=== PATIENT | male | born 1980 | race Caucasian/White ===

== ENCOUNTER 2018-06-17 05:38 | Day surgery (SDC) | payer OTHER ==
[2018-06-17] VITALS (23 sets, daily range): BP systolic 103–145; BP diastolic 47–82; PULSE 52–82; RESP 15–19
[~2018-06-17] VITALS: Ht 182.9 cm; Wt 84.3 kg
[~2018-06-17 05:38] MED LIST: ALPR0.254; CARI350T; HYDR-762
[2018-06-17] MEDS ORDERED: ALPR1TAB2 PO (06:49)
[2018-06-17] MEDS ORDERED: ROPIVACAINE 0.5 % 30 ML VIAL ONE ×2 (06:53→07:23)
[2018-06-17] MEDS ORDERED: NEOMYC/POLYMYX/BACIT 30 GM OINT ONE (06:53)
[2018-06-17] MEDS ORDERED: SUGAMMADEX SODIUM 200 MG/2 ML VIAL IV ONE (07:00)
--- NOTE | 2018-06-17 07:14 | PREAC ---
Date/Time of Note Date/Time of Note DATE: 06/17/18 TIME: 07:11 Anesthesia Eval and Record Evaluation Time Pre-Procedure Interview DATE: 06/17/18 TIME: 07:11 Age 37 Sex male NPO: 8 hrs Preoperative diagnosis RIGHT ANKLE AND SUBTALAR OSTEOCHONDRAL DEFECT, ANKLE ANTERIOR IMPINGEMENT Planned procedure RIGHT ANKLE SCOPE, EXTENSIVE DEBRIDEMENT Past Medical History Past Medical History: Includes Psych: Anxiety Surgery & Anesthesia Issues No known issue Meds Anticoagulation: No Beta Little within 24 hr: No Reason Beta Little not given: Pt. not on B-Little Reported Medications Alprazolam* (Xanax*) 1 Mg Tab, 1 MG PO BID PRN for ANXIETY, TAB 06/17/18 Discontinued Reported Medications Alprazolam (Xanax) 0.25 Mg Tab 07/11/10 Carisoprodol* (Soma*) 350 Mg Tablet 07/11/10 Hydrocodone Bit-Acetaminophen* ([place]*) 1 Tab Tablet 07/11/10 Meds reviewed: Yes Allergies Coded Allergies: No Known Allergies (Verified Allergy, Mild, 06/17/18) Allergies Reviewed: Yes Labs/Studies Labs Reviewed: Reviewed by anesthesiologist test: N/A Pre-procedure Exam Last vitals Vital Signs Date Temp Pulse Resp B/P (MAP) Pulse Ox O2 O2 Flow FiO2 Time Delivery Rate 06/17/18 98.4 62 19 108/79 19 Room Air 06:06 (89) Airway: Adequate mouth opening, Adequate thyromental dist Mallampati: Mallampati II Teeth: Normal Lung: Normal Heart: Normal ASA Physical Status ASA physical status: 1 Emergency: None Planned Anesthetic General/MAC: MAC Planned Pain Management Parenteral pain med Pre-operative Attestations Prior to commencing anesthesia and surgery, the patient was re-evaluated, there was verification of: *The patient's identity *The results of appropriate recent lab work and preoperative vital signs *The above evaluation not changing prior to induction *Anesthetic plan, risk benefits, alternative and complications discussed with patient/family; questions answered; patient/family understands, accepts and wishes to proceed. Robson Gabriel M.D. Jun 17, 2018 07:14
[2018-06-17] MEDS ORDERED: GLYCOPYRROLATE 0.4 MG INJ ONE (07:19)
[2018-06-17] MEDS ORDERED: ROCURONIUM 50 MG INJ ONE ×3 (07:19→10:01)
[2018-06-17] MEDS ORDERED: NEOSTIGMINE 3 MG/3 ML SYRINGE ONE (07:19)
[2018-06-17] MEDS ORDERED: MIDAZOLAM 1 MG/ML 2 ML INJ ONE (07:19)
[2018-06-17] MEDS ORDERED: CEFAZOLIN 1 GM INJ ONE (07:19)
[2018-06-17] MEDS ORDERED: ONDANSETRON 4 MG INJ ONE (07:19)
[2018-06-17] MEDS ORDERED: PROPOFOL 20 ML ONE (07:19)
[2018-06-17] MEDS ORDERED: FENTAnyl 50 MCG/ML VIAL ONE ×3 (07:19→09:17)
[2018-06-17] MEDS ORDERED: DEXAMETHASONE 4 MG/ML 5 ML INJ ONE (07:20)
[2018-06-17] MEDS ORDERED: OXYCODONE/ACETAMINOPHEN (5/325) TAB PO PRN ×2 (07:30)
[2018-06-17] MEDS ORDERED: DIPHENHYDRAMINE 50 MG INJ IV PRN (07:30)
[2018-06-17] MEDS ORDERED: LABETALOL HCL 20MG INJ IV PRN (07:30)
[2018-06-17] MEDS ORDERED: ONDANSETRON 4 MG INJ IV PRN (07:30)
[2018-06-17] MEDS ORDERED: TRIMETHOBENZAMIDE 100 MG/ML VIAL IM PRN (07:30)
[2018-06-17] MEDS ORDERED: hydrALAzine 20 MG INJ IV PRN (07:30)
[2018-06-17] MEDS ORDERED: FENTAnyl 50 MCG/ML VIAL IV PRN ×3 (07:30)
[2018-06-17] MEDS ORDERED: MIDAZOLAM 1 MG/ML 2 ML INJ IV PRN (07:30)
[2018-06-17] MEDS ORDERED: MEPERIDINE 25 MG INJ IV PRN (07:30)
[2018-06-17] MEDS ORDERED: IPRATROPIUM (NEB) 0.5 MG/2.5 ML AMP HHN PRN (07:30)
[2018-06-17] MEDS ORDERED: HYDROmorphONE 1 MG/5 ML IV SYRINGE IV PRN ×3 (07:30)
[2018-06-17] MEDS ORDERED: EPHEDrine SULFATE 50 MG/5 ML SYG IV PRN (07:30)
[2018-06-17] MEDS ORDERED: ALBUTEROL 0.083% (NEB) 2.5 MG/3 ML AMP HHN PRN (07:30)
[2018-06-17] MEDS ORDERED: THROMBIN (BOVINE) 5,000 UNIT VIAL TP ONE (07:32)
[2018-06-17] MEDS ORDERED: HEPARIN 1000 UNITS/ML 10 ML INJ ONE (07:33)
[2018-06-17] MEDS ORDERED: SODIUM CL BACTERIOSTATIC 30 ML INJ ONE (07:33)
--- NOTE | 2018-06-17 08:04 | HPN ---
Date/Time of Note Date/Time of Note DATE: 06/17/18 TIME: 08:04 Interval H&P Admission Note Pt. seen H&P reviewed: No system changes MATILDE MEZA MD Jun 17, 2018 08:04
[2018-06-17] MEDS ORDERED: IOHEXOL 300MG/ML 30 ML BTL ONE (09:19)
[2018-06-17] MEDS ORDERED: CA CHLORIDE (GM) 10% 10 ML INJ ONE (09:19)
[2018-06-17] MEDS ORDERED: CA CHLORIDE 10% 10 ML SYRINGE ONE (09:22)
[2018-06-17] MEDS ORDERED: KETOROLAC 30 MG INJ IV SCH (10:00)
[2018-06-17] MEDS ORDERED: THROMBIN(HUM PLAS)/FIBRINOG/CA 5 ML VIAL TOP ONE (11:51)
[2018-06-17] MEDS ORDERED: DEXAMETHASONE 4 MG/ML 1 ML INJ ONE (12:34)
[2018-06-17] MEDS ORDERED: METOCLOPRAMIDE 10 MG INJ ONE (12:34)
--- NOTE | 2018-06-17 12:46 | PAC ---
Date/Time of Note Date/Time of Note DATE: 06/17/18 TIME: 12:46 Post-Anesthesia Notes Post-Anesthesia Note Last documented vital signs Vital Signs Date Temp Pulse Resp B/P (MAP) Pulse Ox O2 O2 Flow FiO2 Time Delivery Rate 06/17/18 98.4 62 19 108/79 19 Room Air 06:06 (89) Activity: WNL Respiratory function: WNL Cardiovascular function: WNL Mental status: Baseline Pain reasonably controlled: Yes Hydration appropriate: Yes Nausea/Vomiting absent: Yes Robson Gabriel M.D. Jun 17, 2018 12:46
[2018-06-17] MEDS ORDERED: METOCLOPRAMIDE 10 MG INJ IV ONE (13:00)
[2018-06-17] MEDS ORDERED: DEXAMETHASONE 4 MG/ML 1 ML INJ IV ONE (13:00)
[2018-06-17] MEDS ORDERED: OXYCODONE/ACETAMINOPHEN (5/325) TAB PO ONE (15:00)
--- NOTE | 2018-06-17 21:07 | OPR ---
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 Estimated Blood Loss: minimal Transfusion none Specimen none Grafts/Implants none Complications none Pt Condition Post Procedure: stable Disposition: PACU Indications Patient is a 37-year-old male with ongoing pain in his right ankle as well as a positive Silverskiold test showing evidence of dorsiflexion to -10 degrees with the knee in extension and is 0 degrees with the knee in flexion. Given these findings patient is indicated for gastrocnemius recession. Patient is also evid ence of a osteochondral defect of the talus and there will be to surgical operative notes for this patient surgery today please refer to the second operative note for operative findings of the arthroscopy. Risk Note: Patient was explained the risks and benefits of surgery and the patient's [place] language including not limited to infection, bleeding, injury to blood vessels, nerves, ligaments or tendons. Risks of anesthesia, deep vein thrombosis and need for reduce future surgery. Patient acknowledged these risk by signing the surgical consent form. Procedure Description Patient was met in the preoperative holding area and the operative extremity was marked and confirmed with patient and consent. Patient brought to the operative theater and placed supine on operative table given preoperative antibiotics and preoperative anesthesia. Patient was then prepped and draped in normal sterile fashion and a timeout was taken and all parties in the room agreed it was the correct patient and extremity and procedure. Attention was initially turned to the right lower extremity where the ankle was stabilized in the neutral position against the surgeon's body to put the gastrocnemius tendon under moderate tension. A 6 mm medial portal was then cre ated approximately 2 cm distal to the lowest part of the gastrocnemius muscle belly and slightly anterior to the palpable medial border of the gastrocnemius tendon. The deep crural fascia was then punctured with a hemostat and advanced into the plane just posterior to the tension gastrocnemius tendon. A clear cannula was inserted and a trocar was inserted into the soft tissue plane just posterior to the gastrocnemius tendon and deep to the crural fascia. A 6 mm lateral portal was made on the lateral side of the gastrocnemius. The inside of the cannula was then cleaned out and the cannula was adjusted so that the opening slot was facing directly anterior towards the gastrocnemius tendon. The sural nerve was also identified on lateral portion of the leg and protected throughout the case. The hook knife was inserted from the lateral portal maintaining moderate tension on the tendon and releasing the gastrocnemius fascia from midline to the most lateral border. The same procedure was then done from medial portal pulling medially. Once the gastrocnemius fascia was then released the underlying soleus muscle was then served the wound was then irrigated thoroughly. And the ankle was manipulated to approximately 15 degrees of dorsiflexion with the knee in extension. The wounds were then closed with a 4-0 Monocryl and Steri-Strips. Attention was then directed to the right iliac crest where a roxana incision was made over the iliac crest just proximal to the anterior superior iliac spine and using a Jamshidi needle approximately 90 cc of bone marrow aspirate was removed in the right iliac crest and sent off for centrifugation. Following this using a Jamshidi needle core reamer several cc of bone marrow allograft was then removed from the right iliac crest for future use for the osteochondral defect of the talus. Please refer to the second operative note for arthroscopic summary of the procedure. In the case all wounds were covered and dressing was taken down and wrapping was taken down and we converted to the next part of the procedure. At this time surgeons and staff re-prepped the patient please turn your attention to the next operative note for this part of the case. MATILDE MEZA MD Jun 17, 2018 21:07
--- NOTE | 2018-06-17 22:19 | OPR ---
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 with subchondral insufficiency Operation/Procedure Performed Right ankle arthroscopy with extensive debridement Right ankle arthroscopy with Debridement and microfracture of osteochondral defect of anteriorcentral talar dome Right ankle arthroscopy with application of autograft and allograft to osteochondral defect of lateral talar dome mixed with bone marrow aspirate concentrate Right ankle arthroscopic interosseous bio plasty to the talus with application of allograft mixed with bone marrow aspirate concentrate Right ankle application of platelet rich plasma to the ankle and subtalar joint 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 Tourniquet Time: 120 min at 250 mm Hg Estimated Blood Loss: minimal Transfusion none Specimen none Grafts/Implants Arthrex Biocartilage mixed with bone marrow aspirate concentrate Arthrex allysync pure mixed with bone marrow aspirate concentrate Arthrex Vinny platelet rich plasma spun at 2% hematocrit Eviseal fibrin glue Complications none Pt Condition Post Procedure: stable Disposition: PACU Indications Patient is a 29-year-old male ongoing pain over his ankle and talus with MRI and CT confirming osteochondral defect and chronic bone marrow edema to the talus as well as a cystic lesion in both the talus at the dome and at the subchondral area just proximal to the subtalar joint. Given his ongoing pain patient is indicated for surgery after lack of improvement with nonoperative management. Risk Note: Patient was explained the risks and benefits of surgery and the patient's [place] language including not limited to infection, bleeding, injury to blood vessels, nerves, ligaments or tendons. Risks of anesthesia, deep vein thrombosis and need for reduce future surgery. Patient acknowledged these risk by signing the surgical consent form. Procedure Description The patient had the correct operative site marked in the preoperative holding area and confirmed with both patient and patient's consent. The patient was brought back in the operative theater, placed supine on the operating table and given regional block anesthesia. The patient was then given 2 g of Ancef preoperatively. Patient was then given preoperative antibiotics. Please see prior operative note for procedure on the gastrocnemius recession and iliac crest autograft and bone marrow harvest Tourniquet placed on the operative extremity thigh nonsterilely. The thigh was secured onto the thigh hernandez, flexed and all areas were carefully padded with popliteal fossa spared to avoid any compression. The superficial peroneal nerve branch was marked out. The ankle were then prepped and draped in normal sterile fashion. A timeout was taken and all parties in the room agreed it was the correct patient, correct extremity and correct procedure. A soft tissue distraction strap was applied across the ankle and a soft tissue dissection was then placed across the ankle at approximately 30 pounds of force. Attention was then turned to the ankle joint and using a typical anterior medial, posterior lateral and anterolateral portal with care to avoid injury to the neurovascular structures. A 21 point ankle exam was completed revealing significant anterior lateral and medial synovitis with lateral and medial gutter synovitis and scar tissue formation. There was a hemorrhagic nodule seen in the lateral gutter as well as evidence of anterior tibial osteophyte overhang. The anterior distal tibial osteophyte was removed with a bur and a shaver. The significant amount of scar tissue was thoroughly debrided in the lateral and posterior gutter. The lateral and posterior gutter showed extensive scar tissue that was debrided as well as anterolateral synovitis scarring. A osteochondral lesion of the anterior central talar dome was identified and curetted and debrided. There was mild cystic formation found underneath the surface and the entire lesion measures approximately 3x2x1 mm in depth. Water was turned off and the field was dried. Under arthroscopic visualization the remainder of the cystic membranes were removed and then interosseous bio plasty was performed with a 3 mm Jamshidi that was then placed under fluoroscopic guidance from the lateral part of the talus and shown to be in the proper position and then allosync pure mixed with bone marrow aspirate concentrate was then placed into the talus with the events directed both superiorly and inferiorly to fill the cystic defect and bone marrow edema lesion. At the autograft was then placed at the osteochondral defect followed by biocartilage that had been mixed with bone marrow aspirate concentrate and autograft cartilage that was removed during the debridement part process and captured with the graft net. EviSeal fibrin glue was then placed over the top of the biocartilage. The joint was held in traction for approximately 7 minutes while the glue hardened. All wounds were closed with 4-0 nylon in vertical mattress fashion. The wound was then covered ankle and subtalar joint were then injected with platelet rich plasma spine at 2 % hematocrit Platelet poor plasma was placed on the wound dressing. A compression dressing was applied with Xeroform, 4 x 4's and ABDs and the patient was placed into a short leg splint in neutral position. Patient tolerated procedure well and taken to recovery room in stable condition on a leg wedge pillow. At the end of the procedure, all sponge and needle counts were correct. In the PACU all sponge and needle counts were correct. Modifier 22 note: Given the need to add additional autograft to the case and the extensive cystic nature of the osteochondral lesion case should be awarded a moderate modifier 22 given that this required an extra 60 minutes of time and an extensively greater degree of complexity to both harvest the bone graft as well as add bone graft to the chondral site in order to enable a greater degree of healing at the site of the osteochondral defect. MATILDE MEZA MD Jun 17, 2018 22:19
== END 2018-06-17 16:25 | disposition home or self-care (01) ==
LOC: SDS 05:38
PROVIDERS: ATTEND Orthopaedic Surgery
DX: M93.271 Osteochondritis dissecans, right ankle and joints of right foot (principal); M94.8X7 Other specified disorders of cartilage, ankle and foot
CPT/HCPCS: 29892; 29898; 73600; 82306; C1713; C9250; J0690; J1100; J1170; J1644; J2250; J2405; J2765; J2795; J3010; Q9967; J2710